=== PATIENT | male | born 1945 | race Caucasian/White ===

== ENCOUNTER 2017-01-09 08:40 | Day surgery (SDC) | payer MEDICARE, BC ==
[2017-01-09] VITALS (11 sets, daily range): BP systolic 105–143; BP diastolic 77–86; PULSE 51–60; TEMP 97.7
[~2017-01-09] VITALS: Ht 170.2 cm; Wt 66.6 kg
[2017-01-09] MEDS ORDERED: COREG 6.256.25 MG/TA PO (09:38)
[2017-01-09] MEDS ORDERED: ZESTRIL2.5 MG PO (09:38)
[2017-01-09 09:39] LABS: HEMATOCRIT 43.4 % (42.0-52.0); MEAN CELL VOLUME 94 fl (80.0-100.0); MEAN CORPUSCULAR HEMOGLOBIN 32 pg (27.0-31.0); MEAN CORPUSCULAR HGB CONC 35 g/dl (33.0-37.0); MEAN PLATELET VOLUME 10.3 fl (7.4-10.4); PLATELET COUNT 144 K/mm3 (130-400); RED BLOOD COUNT 4.64 M/mm3 (4.20-5.60); WHITE BLOOD COUNT 5.3 K/mm3 (4.8-10.8)
[2017-01-09] MEDS ORDERED: ZOCOR 20MG20 MG PO (09:39)
[2017-01-09] MEDS ORDERED: ASPIRIN 81M81 MG/TA2 PO (09:39)
[2017-01-09] MEDS ORDERED: VITAMIN FLUSH-F1 CAP PO (09:40)
[2017-01-09] MEDS ORDERED: PLAVIX 75MG TAB75 MG PO (09:40)
[2017-01-09] MEDS ORDERED: THE MEDICINE S200 M2 PO (09:41)
[2017-01-09] MEDS ORDERED: EPA FISH OIL1000 MG PO (09:41)
[2017-01-09 09:42] LABS: INR 1.1 (0.8-3.0); PROTHROMBIN TIME 12.2 SECONDS (9.7-12.8)
[2017-01-09] MEDS ORDERED: VITAMIN C500 MG PO (09:42)
[2017-01-09] MEDS ORDERED: CALCIUM 600MG+D1 TAB PO (09:42)
[2017-01-09] MEDS ORDERED: MAGNESIUM250 M1 PO (09:43)
[2017-01-09] MEDS ORDERED: GALZIN25 MG PO (09:44)
[2017-01-09 09:46] LABS: CALCIUM 9.1 mg/dL (8.4-10.2); CREATININE, serum 0.71 mg/dL (0.66-1.25); POTASSIUM 4.2 mmol/L (3.4-5.0)
[2017-01-09] MEDS ORDERED: CEPHALEXIN500 M1 PO (13:05)
== END 2017-01-09 13:10 | disposition home or self-care (01) ==
LOC: COL.CAR 08:40
PROVIDERS: Internal Medicine Cardiovascular Disease
DX: Z45.02 Encounter for adjustment and management of automatic implantable cardiac defibrillator (principal); I25.10 Atherosclerotic heart disease of native coronary artery without angina pectoris; I10 Essential (primary) hypertension; E78.5 Hyperlipidemia, unspecified; I25.2 Old myocardial infarction; Z86.73 Personal history of transient ischemic attack (TIA), and cerebral infarction without residual deficits
CPT/HCPCS: C1721; J0690; J2250; J3010; J7030